=== PATIENT | male | born 1955 | race American Indian/Alaskan Native ===

== ENCOUNTER 2017-12-27 10:52 | Emergency (ER) | payer SELFPAY ==
[2017-12-27 11:42] LABS: Basophils % (Auto) 1.2 % (0.0-1.8); Eosinophils # (Auto) 0.1 K/mm3 (0.0-0.4); Eosinophils % (Auto) 3.2 % (0.0-4.3); Hematocrit 35.1 % (35.5-45.6); Hemoglobin 12.2 gm/dl (11.8-15.2); Lymphocytes # (Auto) 0.8 K/mm3 (1.2-5.4); Lymphocytes % (Auto) 19.6 % (13.4-35.0); Mean Corpuscular HGB Conc 35 % (32-34); Mean Corpuscular Hemoglobin 31 pg (28-32); Mean Corpuscular Volume 88 fl (84-94); Monocytes # (Auto) 0.3 K/mm3 (0.0-0.8); Monocytes % (Auto) 8.6 % (0.0-7.3); Platelet Count 226 K/mm3 (140-440); Red Blood Count 3.98 M/mm3 (3.65-5.03); Red Cell Distribution Width 14.1 % (13.2-15.2)
[2017-12-27 11:56] LABS: BUN/Creatinine Ratio 20; Blood Urea Nitrogen 16 mg/dL (9-20); Calcium 9.2 mg/dL (8.4-10.2); Hemolysis Index 37
[2017-12-27 12:48] LABS: Amphetamine Screen,Urine PRESUMPTIVE NEGATIVE; Bacteria,Urine 1+ /HPF (Negative); Benzodiazepines Screen,Urine PRESUMPTIVE NEGATIVE; Bilirubin,Urine NEG (Negative); Blood,Urine NEG (Negative); Cannabinoid Screen,Urine PRESUMPTIVE NEGATIVE; Cocaine Screen,Urine PRESUMPTIVE NEGATIVE; Color,Urine Yellow (Yellow); Hyaline Casts,Urine 1 /LPF; Methadone Screen,Urine PRESUMPTIVE NEGATIVE; Mucus,Urine FEW /HPF; Opiate Screen,Urine PRESUMPTIVE NEGATIVE; Urobilinogen,Urine < 2.0 mg/dL (<2.0)
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
--- NOTE | 2017-12-27 15:08 | Cat Scan Report ---
CT HEAD WITHOUT CONTRAST: HISTORY: Altered mental status. TECHNIQUE: Sequential 2.5mm CT images. COMPARISON: none. FINDINGS: Cerebral Parenchyma: Within normal limits. Cerebellum: Within normal limits. Brainstem: Within normal limits. Ventricles: Normal. Sella: Normal. Extra-axial spaces: Normal. Basal Cisterns: Normal. Intracranial Hemorrhage: None. Midline Shift: None. Calvarium: Normal. Sinuses: Normal. Mastoid Air Cells: Normal. Visualized Orbits: Normal. IMPRESSION: Cranial CT scan within normal limits.
[2017-12-27] MEDS ORDERED: GEODON IM PRN (16:12)
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
[2017-12-28] MEDS ORDERED: ABILIFY PO SCH (22:00)
--- NOTE | 2017-12-29 10:34 | Progress Note ---
Subjective - Reason for Consult Consult date: 12/29/17 Reason for consult: Psychiatry Follow-up - Chief Complaint Chief complaint: 62 y.o. AA male presenting to the ER for paranoids thoughts. Today is calm and cooperative during the assessment. He still feel like "people" will continue to follow him if he is discharged. He stated that he feels safe at the moment. He was looking around the room during the interview and pausing when he answers questions, possibly responding to some type of stimuli. He denies SI/HI's and AVH's. He denies any side effects of his medication. Mental Status Exam - Vital signs Last Vital Signs Temp 98.4 F 12/28/17 22:00 Pulse 98 H 12/28/17 22:00 Resp 18 12/29/17 09:54 BP 137/94 12/28/17 22:00 Pulse Ox 98 12/29/17 09:54 - Exam Narrative exam: MSE: Appearance: calm, cooperative Behavior: regular eye contact Speech: regular rate and tone Mood: "okay" Affect: congruent to mood Thought Process: circumstantial Thought Content: denies SI/HI's and AVH's, paranoia, delusional Motor Activity: sitting up in bed Cognition: A/O x 3 Insight: poor Judgment: poor Assessment and Plan Impression: Unspecified Psychosis. hx of Depression. Today is calm and cooperative during the assessment. The patient is experiencing perceptual disturbances. UDS is negative. DDx: Schizophrenia, R/O Bipolar DO, R/O Schizoaffective DO Recommendation/Plan: Continue 1013 with pending placement to [facility]. Continue Abilify 5 mg PO HS for psychosis. Discussed possible metabolic side effects of Abilify with patient.
[2017-12-29 17:34] VITALS: BP 160/102
== END 2017-12-29 17:34 ==
LOC: EEVIPCON 10:52 → ED 10:52
DX: F29 Unspecified psychosis not due to a substance or known physiological condition (principal); F22 Delusional disorders; I10 Essential (primary) hypertension; E11.9 Type 2 diabetes mellitus without complications
CPT/HCPCS: 36415; 70450; 80048; 80307; 81001; 84132; 85025; 99285; G0480; 80320